=== PATIENT | female | born 1985 | race Caucasian/White ===

== ENCOUNTER 2017-07-27 13:19 | Outpatient (CLI) | payer BC ==
--- NOTE | 2017-07-27 15:10 | RAD ---
LUMBAR SPINE RADIOGRAPHS: Date: 07/27/17 CLINICAL HISTORY: Back pain. FINDINGS: There is no evidence of compression fracture or subluxation of the lumbar spine. Focal density overl ies the right ilium. IMPRESSION: No acute osseous abnormality. POS: [facility]
== END 2017-07-27 13:20 | disposition home or self-care (01) ==
LOC: RAD 13:19
PROVIDERS: ATTEND Family Medicine
DX: M54.9 Dorsalgia, unspecified (principal)
CPT/HCPCS: 72100

== ENCOUNTER 2018-09-14 08:29 | Day surgery (SDC) | payer OTHER ==
[2018-09-13 13:08] VITALS: BMI 29.2
--- NOTE | 2018-09-14 05:45 | HP ---
SHORT STAY HISTORY AND PHYSICAL DATE OF ADMISSION: 09/14/2018 HISTORY OF PRESENT ILLNESS: This is a 33-year-old female with chronic GI symptoms. She has had ____ _ intolerance. She complains of abdominal bloating, abdominal swelling, and also constipation. She has family history of colon cancer. Her mother of colon cancer at age 51. The patient comes in for a colonoscopy because of the family history of colon cancer, abdominal pain, constipation. ALLERGIES: Allergic to TAPE. SOCIAL HISTORY: The patient does not smoke, but drinks alcohol socially. MEDICAL ILLNESSES: 1. Hypothyroidism. 2. Obesity. 3. IBS. PHYSICAL EXAMINATION: GENERAL: She is obese, appears comfortable. VITAL SIGNS: Pulse is 70, blood pressure 130/80. HEENT: Conjunctivae clear. CARDIOVASCULAR SYSTEM: First and second heart sounds normal. LUNGS: Clear to auscultation. ABDOMEN: Soft. No organomegaly. No tenderness. No masses. ADMITTING DIAGNOSES: A 33-year-old female with family history of colon cancer, abdominal pain, and c onstipation. PLAN: Colonoscopy.
--- NOTE | 2018-09-14 11:35 | OP ---
DATE OF PROCEDURE: 09/14/2018 SURGEON: Vidya Rashid M.D. OPERATIVE PROCEDURE: 1. Colonoscopy with polypectomy. 2. Colonoscopy with injection of 1:10,000 epinephrine before the polypectomy. The polyp appeared v ascular. PREOPERATIVE DIAGNOSES: 1. Constipation. 2. Family history of colon cancer. POSTOPERATIVE DIAGNOSES: 1. Large sessile polyp sigmoid colon, status post snare cautery with good hemostasis. 2. Occasional sigmoid diverticula. PROCEDURE IN DETAIL: The patient was placed on her left lateral position and was given sedation by A nesthesia Department. A rectal exam was done before the scope was advanced into the rectum. No lesi on felt on rectal exam. A Pentax video colonoscope was introduced into the rectum and advanced all t he way to the cecum. The prep was very good. The mucosa appeared normal. The appendiceal orifice, ileocecal valve, cecum, no pathology seen. Withdrawal of scope in cecum, ascending colon, hepatic fl exure, no pathology seen. The transverse colon, splenic flexure, and descending colon, no pathology seen. The sigmoid colon showed occasional diverticula. A broad based sessile polyp which appears ve ry vascular seen over the sigmoid colon area. It was elected to inject 2 mL of 1:10,000 epinephrine at the base of the polyp to prevent bleeding. This was accomplished without any problem. Following injection of epinephrine snare cautery was used to remove the polyp completely. Post-polypectomy, no bleeding seen. Rectum showed no pathology. DISCHARGE PLANNING: This is a 33-year-old female with family history of colon cancer. She also has history of constipation. She had a colon polypectomy and injection of 1:10,000 epinephrine at the polypectomy site. DISCHARGE RECOMMENDATIONS: 1. The patient was advised to call me if she develops abdominal pain, hematochezia or fever. 2. I will await the colonic biopsy before deciding the next colonoscopy.
[2018-09-14] MEDS ORDERED: PROPOFOL 200 MG/20 ML VIAL ONE (14:26)
== END 2018-09-14 11:55 | disposition home or self-care (01) ==
LOC: SDC 08:29
PROVIDERS: ATTEND Internal Medicine Gastroenterology
PROC: 0DBN8ZX Excision of Sigmoid Colon, Via Natural or Artificial Opening Endoscopic, Diagnostic (ICD-10-PCS; principal; 2018-09-14)
PROC: 3E0H8GC Introduction of Other Therapeutic Substance into Lower GI, Via Natural or Artificial Opening Endoscopic (ICD-10-PCS; principal; 2018-09-14)
DX: K63.5 Polyp of colon (principal); E03.9 Hypothyroidism, unspecified; E66.9 Obesity, unspecified; K58.9 Irritable bowel syndrome, unspecified; Z80.0 Family history of malignant neoplasm of digestive organs; Z79.899 Other long term (current) drug therapy
CPT/HCPCS: 88305; J2704

== ENCOUNTER 2020-12-05 14:24 | Outpatient (CLI) | payer OTHER ==
--- NOTE | 2020-12-05 15:28 | MMO ---
Bilateral MAMMO Bilat Diag [facility]. CLINICAL HISTORY: Patient is 35 years old and is seen for diagnostic exam and pain in the right breast. The patient has no family history of breast cancer. The patient has no personal history of cancer. The patient has a history of bilateral Implants in 2011. VIEWS: The views performed were: bilateral craniocaudal; bilateral craniocaudal with tomosynthesis; bilateral mediolateral oblique; bilateral mediolateral oblique with tomosynthesis; bilateral mediolateral; bilateral mediolateral with tomosynthesis; and bilateral Implant displaced with tomosynthesis. FILMS COMPARED: The present examination has been compared to a prior imaging study performed at [facility] on 12/05/2020. This study has been interpreted with the assistance of computer-aided detection. MAMMOGRAM FINDINGS: The breasts are heterogeneously dense, which could obscure a lesion on mammography. There are no suspicious masses, suspicious calcifications, or new areas of architectural distortion. IMPRESSION: THERE IS NO MAMMOGRAPHIC EVIDENCE OF MALIGNANCY. A ROUTINE FOLLOW-UP MAMMOGRAM AT AGE 38 IS RECOMMENDED. THE RESULTS OF THIS EXAM WERE SENT TO THE PATIENT. ACR BI-RADS Category 1 - Negative MAMMOGRAPHY NOTE: 1. A negative mammogram report should not delay a biopsy if a dominant of clinically suspicious mass is present. 2. Approximately 10% to 15% of breast cancers are not detected by mammography. 3. Adenosis and dense breasts may obscure an underlying neoplasm. Reported by: RUBÉN NOLASCO MD Electonically Signed: [id number]
--- NOTE | 2020-12-05 15:37 | ULT ---
ULTRASOUND RIGHT BREAST: 12/05/20 INDICATIONS: Tenderness upper outer right breast. No specified palpable abnormality. Small cyst is seen at 9 o'clock measuring 5 mm. No other sonographic abnormality identified. Represen tative images were obtained at 9, 10, 11 and 12 o'clock positions. IMPRESSION: Ultrasound findings of BIRADS 2: Benign Finding(s) Routine annual screening mammography (for women over age 40). POS: OFF
--- NOTE | 2020-12-05 15:39 | ULT ---
ULTRASOUND LEFT BREAST: 12/05/20 Ultrasound of the upper outer and posterior mid left breast was performed to assess heterogeneous altaf ast parenchyma noted on mammogram. FINDINGS: No sonographic abnormality identified. Pcas images were obtained at 9, 10, 11, 12, 1, 2, an d 3 o'clock positions. IMPRESSION: Left breast ultrasound findings are BIRADS 1: Negative Routine annual screening mammography (for women over age 40) POS: OFF
== END 2020-12-05 14:25 | disposition home or self-care (01) ==
LOC: BICMAMMO 14:24
PROVIDERS: ATTEND Family Medicine
DX: N64.4 Mastodynia (principal)
CPT/HCPCS: 77066; G0279

== ENCOUNTER 2022-01-02 16:08 | Outpatient (CLI) | payer BC | END 2022-01-02 16:09 | disposition home or self-care (01) | LOC: SCSMRI 16:08 | PROVIDERS: ATTEND Neurological Surgery | DX: M54.12 Radiculopathy, cervical region (principal); M48.02 Spinal stenosis, cervical region | CPT/HCPCS: 72141 ==

== ENCOUNTER 2023-12-03 14:15 | Outpatient (CLI) | payer BC | END 2023-12-03 14:16 | disposition home or self-care (01) | LOC: SCSRAD 14:15 | PROVIDERS: ATTEND Physician Assistant | DX: R05.3 Chronic cough (principal); Z86.19 Personal history of other infectious and parasitic diseases; Z78.9 Other specified health status | CPT/HCPCS: 71046 ==